=== PATIENT | female | born 1980 | race American Indian/Alaskan Native ===

== ENCOUNTER 2016-09-16 02:31 | Emergency (ER) | payer MEDICAID ==
[2016-09-16 03:11] VITALS: TEMP 98.2; O2SAT 96
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
[2016-09-16 03:42] VITALS: BP 124/75; PULSE 80; RESP 16
== END 2016-09-16 03:42 | disposition home or self-care (01) ==
LOC: EDUNIT#
DX: T76.21XA Adult sexual abuse, suspected, initial encounter (principal); F17.200 Nicotine dependence, unspecified, uncomplicated